=== PATIENT | female | born 1940 | race African-American/Black ===

== ENCOUNTER 2018-10-07 13:51 | Emergency (ER) | payer BC, MEDICARE ==
[~2018-10-07] VITALS: Ht 165.1 cm; Wt 90.0 kg
[2018-10-07] MEDS ORDERED: TETANUS, DIPHTHERIA, PERTUSSIS VAC/PF 0.5ML (>7YR OLD) IM ONE (16:15)
[2018-10-07] MEDS ORDERED: LIDOCAINE HCL/PF 1% 10 MG/ML 5ML VIAL IJ ONE (16:15)
[2018-10-07] MEDS ORDERED: ACETAMINOPHEN 325MG TABLET PO ONE (16:15)
[2018-10-07] MEDS ORDERED: BACITRACIN ZINC OINT UDPKT TOP ONE (18:00)
[2018-10-07 18:50] VITALS: BP 155/72
== END 2018-10-07 19:10 | disposition home or self-care (01) ==
LOC: ER 13:51
DX: S01.81XA Laceration without foreign body of other part of head, initial encounter (principal); S63.501A Unspecified sprain of right wrist, initial encounter; Y93.89 Activity, other specified; W01.198A Fall on same level from slipping, tripping and stumbling with subsequent striking against other object, initial encounter; Y92.240 Courthouse as the place of occurrence of the external cause; I11.0 Hypertensive heart disease with heart failure; I50.9 Heart failure, unspecified; E11.9 Type 2 diabetes mellitus without complications; Z79.899 Other long term (current) drug therapy; Z23 Encounter for immunization
CPT/HCPCS: 12011; 29125; 70450; 73110; 90471; 90715; 99284; J3490